=== PATIENT | male | born 1985 | race Caucasian/White ===

== ENCOUNTER 2020-07-17 05:47 | Emergency (ER) | payer BC, SELFPAY ==
[2020-07-17 06:00] VITALS: BP 169/96; PULSE 92; RESP 16; TEMP 36.7; O2SAT 99; BMI 36.2
--- NOTE | 2020-07-17 06:29 | XR_ITS ---
PROCEDURE: XR CHEST 2V CLINICAL HISTORY: Rule out lung disease Nonsmoker for comment painful rash on leg, fever on Friday COMPARISON: US CA VENOUS DOPPLER LE RT from 07/17/2020 FINDINGS: The cardiomediastinal silhouette and pulmonary vascularity are within normal limits. The lungs are clear without infiltrates, suspicious nodules, or pleural effusions. No acute bony abnormalities. IMPRESSION: No acute findings. Dictated by: Sahara Sousa 07/17/2020 08:35 Sahara Sousa in OV 07/17/2020 08:35
[2020-07-17 06:35] LABS: Basophils % 0.6 % (0.1-2.0); Eosinophils # 0.1 K/mm3 (0.0-0.4); Eosinophils % 1.5 % (0.1-12.0); Hematocrit 45.5 % (42.0-52.0); Hemoglobin 15.5 g/dL (14.1-18.0); Lymphocytes # 1.4 K/mm3 (0.7-4.5); Lymphocytes % 18.2 % (10-50); Mean Corpuscular HGB Conc 33.9 g/dL (31.8-35.4); Mean Corpuscular Hemoglobin 31.5 pg (27.0-31.2); Mean Corpuscular Volume 92.7 fl (80-94); Mean Platelet Volume 7.8 fl (7.4-10.4); Monocytes # 0.7 K/mm3 (0.1-1.0); Monocytes % 9.1 % (1.7-9.3); Neutrophils # 5.4 K/mm3 (1.8-7.8); Neutrophils % 70.7 % (37.0-80.0); Platelet Count 203 K/mm3 (142-424); Red Blood Count 4.91 M/mm3 (4.60-6.20); Red Cell Distribution Width 12.7 % (11.5-17.5); White Blood Count 7.7 K/mm3 (4.8-10.8)
[2020-07-17 06:37] VITALS: BP 131/82; PULSE 85; RESP 18; O2SAT 98
--- NOTE | 2020-07-17 06:38 | HMH.EDSKAF ---
ED Disposition Clinical Impression: Erythema nodosum Cellulitis Qualifiers: Site of cellulitis: extremity Site of cellulitis of extremity: lower extremity Laterality: right Qualified Code(s): L03.115 - Cellulitis of right lower limb Disposition: Home, Self-Care Condition on Discharge: Good Instructions: DI for Erythema Nodosum Additional Instructions: fluids and advil/tyenol and see pcp this week Prescriptions: cephALEXin [cephALEXin 500mg capsule*] 500 mg PO TID #21 cap Transmission Status: Pending to [facility] # predniSONE [Prednisone 20mg Tab] 20 mg PO BID #10 tab Transmission Status: Pending to [facility] # Referrals: Kala Espinal [Primary Care Provider] - - Critical Care Critical Care Time: No Attestation: On 07/17/20, the high probability of a clinically significant, sudden or life threatening deterioration of the following system(s) required my full and direct attention, intervention and personal management. The time I documented below is in addition to time spent performing reported procedures but includes the following listed in this critical care notation. Medical Decision Making - Medical Records Medical records reviewed: Yes: I reviewed the patient's medical records. - Alex Inquiry Pt receiving controlled substance: No Vital Signs: 07/17/20 06:00 07/17/20 06:37 Temperature 98.1 F Temperature Source Oral Pulse Rate [Right Brachial] 92 H 85 Respiratory Rate 16 18 Blood Pressure [Right Arm] 169/96 H 131/82 Blood Pressure Mean [Right Arm] 120 98 Blood Pressure Source [Right Arm] Automatic Cuff Automatic Cuff Blood Pressure Position [Right Arm] Sitting Sitting 02 Sat by Pulse Oximetry 99 98 Oxygen Delivery Method Room Air Room Air - Lab Data Lab results reviewed: Yes: I reviewed the patient's lab results. Lab Results 07/17/20 06:10: WBC 7.7, RBC 4.91, Hgb 15.5, Hct 45.5, MCV 92.7, MCH 31.5 H, MCHC 33.9, RDW 12.7, Plt Count 203, MPV 7.8, Neut % (Auto) 70.7, Lymph % (Auto) 18.2, [place] % (Auto) 9.1, Eos % (Auto) 1.5, Baso % (Auto) 0.6, Neut # (Auto) 5.4, Lymph # (Auto) 1.4, [place] # (Auto) 0.7, Eos # (Auto) 0.1, Baso # (Auto) 0.0 07/17/20 06:10: Sodium 141, Potassium 3.9, Chloride 106, Carbon Dioxide 27, Anion Gap 11.9, BUN 15, Creatinine 1.00, Estimated Creat Clear 130, Estimated GFR 86, Est GFR ( Amer) 103, Glucose 141 H, Calcium 9.6, Total Bilirubin 0.7, Direct Bilirubin 0.1, Conjugated Bilirubin 0.0, Indirect Bilirubin 0.6, Unconjugated Bilirubin 0.6, AST 41, ALT 63, Alkaline Phosphatase 71, C-Reactive Protein 98.2 H, Total Protein 8.2, Albumin 4.6 07/17/20 06:10: Lactate 0.9 07/17/20 06:10: ESR 20 H 07/17/20 06:10: Procalcitonin 0.324 07/17/20 06:44: Group A Strep Rapid Negative Result diagrams: 07/17/20 06:10 07/17/20 06:10 Orders (Tests/Meds): ED MEDICATIONS Discontinued Medications Generic Name Dose Route Start Last Admin Trade Name Freq PRN Reason Stop Dose Admin Ketorolac Tromethamine 30 mg 07/17/20 07:38 07/17/20 07:55 Ketorolac 30mg/Ml Vial IV 07/17/20 07:39 30 mg ONCE ONE Administration Methylprednisolone Sodium Succinate 125 mg 07/17/20 07:38 07/17/20 07:55 Methylprednisolone Sod Succ 125mg Vial IV 07/17/20 07:39 125 mg ONCE ONE Administration ORDERS Category Date Time Status Chest XR 2 view (NOT portable) [XR chest 2V] Stat Exams 07/17/20 06:29 Taken Blood Culture Stat Micro 07/17/20 06:10 Received Strep Screen Confirmation Stat Micro 07/17/20 06:44 Received - Radiology Data #1 Image(s): Chest Image Reviewed: Yes I reviewed the patient's radiology image Preliminary Findings: Abnormal (nonspecific ) - US Data US Images: Lower Extremity ED US Reviewed: Yes: I discussed the US results w/the radiologist Preliminary Findings: Normal/NAD Skin/Abscess/FB HPI - General Chief complaint: Skin/Abscess/Foreign Body Stated complaint: Knot on right leg, red and warm to touch
[2020-07-17 06:40] LABS: Chloride 106 mmol/L (98-107); Potassium 3.9 mmoL/L (3.5-5.1); Sodium 141 mmol/L (136-145)
[2020-07-17 06:43] LABS: Alanine Aminotransferase 63 U/L (12-78); Albumin Level 4.6 g/dl (3.5-5.0); Alkaline Phosphatase 71 U/L (38-126); Anion Gap 11.9 mEq/L (5-15); Aspartate Amino Transferase 41 U/L (17-59); Bilirubin,Direct 0.1 mg/dl (0.0-0.4); Bilirubin,Indirect 0.6 mg/dL (0.0-0.9); Bilirubin,Total 0.7 mg/dl (0.2-1.3); Bilirubin,Unconjugated 0.6 mg/dL (0.0-1.1); Blood Urea Nitrogen 15 mg/dl (9-20); Calcium 9.6 mg/dl (8.4-10.2); Carbon Dioxide 27 mmol/L (22.0-30.0); Creatinine Clearance Estimated 130 mL/min (50-200); Estimated Glomerular Filt Rate 86 ml/min (>60); GFR (African American) 103 ML/MIN (>60); Glucose 141 mg/dl (74-100); Lactic Acid 0.9 mmol/L (0.7-2.1); Total Protein,Serum 8.2 g/dl (6.3-8.2)
[2020-07-17 06:48] LABS: C-Reactive Protein 98.2 mg/L (0-4)
[2020-07-17 07:06] LABS: Strep Scrn Group A (Rapid) Negative (Negative)
[2020-07-17 07:21] LABS: Erythrocyte Sedimentation Rate 20 mm/hr (0-15)
[2020-07-17 07:30] LABS: Procalcitonin 0.324 ng/mL (0.0-2.0)
--- NOTE | 2020-07-17 07:30 | CA_ITS ---
APPROVED REPORT Right Lower Extremity Venous Study for DVT. Package Pick Up: Corinne Chiu, RVT Indications Lower Extremity Pain: Right Lower Extremity Edema: Right tender swollen leg,reddness lower calf x 2 days,nki Vein Imaging CFV (R): compressive, spontaneous, phasic, augmentation FEM (R): compressive, spontaneous, phasic, augmentation POP (R): compressive, spontaneous, phasic, augmentation PTV (R): Compressible GSV (R): Compressible Peroneals (R):Compressible GAS (R): Compressible Findings Study suggests no evidence of DVT of the right lower extremity. Study suggests no evidence of SVT of the right lower extremity. 5.7X3.9 cm lymph node with a multinodular cortex which demonstrates blood flow in the cortex is seen in the right lower extremity. Conclusion Study suggests no evidence of DVT of the right lower extremity. Study suggests no evidence of SVT of the right lower extremity. ABNORMAL 5.7X3.9 cm lymph node seen in the right lower extremity. Critical Notification Physician Notified Date: 07/17/2020 Time: 08:00 Physician Name: Dr Kimbrough Electronically signed by : Sahara Sousa, 07/17/2020 08:43:21
--- NOTE | 2020-07-17 07:32 | PC.NURSE ---
Vascular notified of venous doppler order
[2020-07-17 08:13] VITALS: BP 151/91; PULSE 87; RESP 18; TEMP 36.7; O2SAT 97
== END 2020-07-17 08:15 | disposition home or self-care (01) ==
PROVIDERS: Emergency Provider Emergency Medicine; PCP Family Medicine
DX: L03.115 Cellulitis of right lower limb (principal)
CPT/HCPCS: 71046; 80048; 80076; 83605; 84145; 85025; 85651; 86140; 87040; 87430; 93971; 96374; 96375; 99284

== ENCOUNTER 2020-12-06 20:14 | Emergency (ER) | payer BC, SELFPAY ==
[2020-12-06] VITALS (8 sets, daily range): BP systolic 122–149; BP diastolic 72–86; PULSE 62–101; RESP 16–24; TEMP 36.7; O2SAT 95–98; BMI 32.1
--- NOTE | 2020-12-06 20:22 | ECG_ITS ---
APPROVED REPORT Exam: Resting ECG HR:88 bpm ECG Measurements Heart Rate 88 AXES NE 146 P 32 QRSd 86 QRS 62 QT 344 T 23 QTc 416 Conclusion Normal sinus rhythm Cannot rule out Anterior infarct, age undetermined Abnormal ECG Electronically signed by : Juan Pablo Rivers, 12/07/2020 17:42:26
[2020-12-06 21:01] LABS: Basophils # 0.1 K/mm3 (0-0.2); Basophils % 0.7 % (0.1-2.0); Eosinophils # 0.2 K/mm3 (0.0-0.4); Eosinophils % 2.4 % (0.1-12.0); Lymphocytes # 2.3 K/mm3 (0.7-4.5); Lymphocytes % 25.7 % (10-50); Mean Corpuscular HGB Conc 34.1 g/dL (31.8-35.4); Mean Corpuscular Hemoglobin 31.1 pg (27.0-31.2); Mean Corpuscular Volume 91.3 fl (80-94); Mean Platelet Volume 8.2 fl (7.4-10.4); Monocytes # 0.6 K/mm3 (0.1-1.0); Monocytes % 7.3 % (1.7-9.3); Neutrophils # 5.7 K/mm3 (1.8-7.8); Platelet Count 264 K/mm3 (142-424); Red Blood Count 4.82 M/mm3 (4.60-6.20); Red Cell Distribution Width 12.9 % (11.5-17.5); White Blood Count 8.9 K/mm3 (4.8-10.8)
--- NOTE | 2020-12-06 21:02 | HMH.EDGENADL ---
ED Disposition Clinical Impression: Right upper quadrant abdominal pain Disposition: Home, Self-Care Condition on Discharge: Good Instructions: DI for Acute Abdominal Pain Additional Instructions: Follow-up with your primary care doctor to discuss gallbladder ultrasound. Continue taking pantoprazole. Additional instructions for ABDOMINAL PAIN: See your physician as soon as possible for further evaluation. Return immediately if worsening abdominal pain, vomiting, shortness of breath, fever, vomiting of blood or abdominal distention. Referrals: Kala Esipnal [Primary Care Provider] - - Critical Care Critical Care Time: No Attestation: On 12/06/20, the high probability of a clinically significant, sudden or life threatening deterioration of the following system(s) required my full and direct attention, intervention and personal management. The time I documented below is in addition to time spent performing reported procedures but includes the following listed in this critical care notation. Medical Decision Making - Alex Inquiry Pt receiving controlled substance: No Vital Signs: 12/06/20 20:20 12/06/20 20:30 12/06/20 21:00 Temperature 98.1 F Temperature Source Oral Pulse Rate 91 H 81 Pulse Rate [Left Radial] 101 H Respiratory Rate 16 20 20 Blood Pressure 143/86 H 129/83 Blood Pressure [Right Arm] 122/73 Blood Pressure Mean [Right Arm] 89 Blood Pressure Source [Right Arm] Automatic Cuff Blood Pressure Position [Right Arm] Sitting 02 Sat by Pulse Oximetry 97 95 95 Oxygen Delivery Method Room Air 12/06/20 21:42 12/06/20 22:00 12/06/20 22:30 Temperature Temperature Source Pulse Rate 79 82 76 Pulse Rate [Left Radial] Respiratory Rate 20 22 19 Blood Pressure 139/74 149/78 H 136/72 Blood Pressure [Right Arm] Blood Pressure Mean [Right Arm] Blood Pressure Source [Right Arm] Blood Pressure Position [Right Arm] 02 Sat by Pulse Oximetry 98 96 95 Oxygen Delivery Method Room Air Room Air - Lab Data Lab Results 12/06/20 20:35: WBC 8.9, RBC 4.82, Hgb 15.0, Hct 44.0, MCV 91.3, MCH 31.1, MCHC 34.1, RDW 12.9, Plt Count 264, MPV 8.2, Neut % (Auto) 64.0, Lymph % (Auto) 25.7, [place] % (Auto) 7.3, Eos % (Auto) 2.4, Baso % (Auto) 0.7, Neut # (Auto) 5.7, Lymph # (Auto) 2.3, [place] # (Auto) 0.6, Eos # (Auto) 0.2, Baso # (Auto) 0.1 12/06/20 20:35: Sodium 141, Potassium 4.0, Chloride 104, Carbon Dioxide 26, Anion Gap 15.0, BUN 22 H, Creatinine 1.00, Estimated Creat Clear 129, Estimated GFR 86, Est GFR ( Amer) 103, Glucose 133 H, Calcium 8.9, Total Bilirubin 0.5, AST 39, ALT 46, Alkaline Phosphatase 86, Total Protein 7.6, Albumin 4.6, Globulin 3.0, Albumin/Globulin Ratio 1.5, Amylase 67, Lipase 102 12/06/20 22:46: Troponin I < 0.01 Result diagrams: 12/06/20 20:35 12/06/20 20:35 Orders (Tests/Meds): ED MEDICATIONS Discontinued Medications Generic Name Dose Route Start Last Admin Trade Name Tomi PRN Reason Stop Dose Admin Iopamidol 75 ml 12/06/20 21:33 12/06/20 21:34 Iopamidol-370 (76%);100ml Bottle IV 12/06/20 21:34 75 ml ONCE ONE Administration Ketorolac Tromethamine 30 mg 12/06/20 21:11 12/06/20 21:13 Ketorolac 30mg/Ml Vial IV 12/06/20 21:12 30 mg ONCE ONE Administration Sodium Chloride 10 ml 12/06/20 21:33 12/06/20 21:34 Sodium Chloride 0.9% 10ml Syr (Rad Only) IV 12/06/20 21:34 10 ml ONCE ONE Administration - CT Data CT Scan: Abdomen, Pelvis Time Received: 22:[address] Reviewed: Yes: I have viewed the radiologist's interpretation Findings Narrative: PROCEDURE INFORMATION: Exam: CT Abdomen And Pelvis With Contrast Exam date and time: 12/06/2020 9:11 PM Age: 34 years old Clinical indication: Abdominal pain; Generalized; Additional info: Abdo pain TECHNIQUE: Imaging protocol: Computed tomography of the abdomen and pelvis with contrast. Radiation optimization: All CT scans at this facility use at least
[2020-12-06 21:06] LABS: Alanine Aminotransferase 46 U/L (12-78); Albumin Level 4.6 g/dl (3.5-5.0); Albumin/Globulin Ratio 1.5 (1.1-1.8); Alkaline Phosphatase 86 U/L (38-126); Amylase 67 U/L (30-110); Aspartate Amino Transferase 39 U/L (17-59); Bilirubin,Total 0.5 mg/dl (0.2-1.3); Blood Urea Nitrogen 22 mg/dl (9-20); Calcium 8.9 mg/dl (8.4-10.2); Carbon Dioxide 26 mmol/L (22.0-30.0); Chloride 104 mmol/L (98-107); Creatinine Clearance Estimated 129 mL/min (50-200); Estimated Glomerular Filt Rate 86 ml/min (>60); GFR (African American) 103 ML/MIN (>60); Glucose 133 mg/dl (74-100); Lipase 102 U/L (23-300); Sodium 141 mmol/L (136-145); Total Protein,Serum 7.6 g/dl (6.3-8.2)
--- NOTE | 2020-12-06 21:11 | CT_ITS ---
PROCEDURE INFORMATION: Exam: CT Abdomen And Pelvis With Contrast Exam date and time: 12/06/2020 9:11 PM Age: 34 years old Clinical indication: Abdominal pain; Generalized; Additional info: Abdo pain TECHNIQUE: Imaging protocol: Computed tomography of the abdomen and pelvis with contrast. Radiation optimization: All CT scans at this facility use at least one of these dose optimization techniques: automated exposure control; mA and/or kV adjustment per patient size (includes targeted exams where dose is matched to clinical indication); or iterative reconstruction. Contrast material: ISOVUE; Contrast volume: 75 ml; Contrast route: IV; COMPARISON: CA VENOUS DOPPLER LE RT 07/17/2020 7:38 AM FINDINGS: Liver: Normal. Gallbladder and bile ducts: Normal. Pancreas: Normal. Spleen: Normal. Adrenal glands: Normal. No mass. Kidneys and ureters: Normal. Stomach and bowel: Normal. Appendix: No evidence of appendicitis. Intraperitoneal space: Unremarkable. No free air. No significant fluid collection. Vasculature: Unremarkable. No abdominal aortic aneurysm. Lymph nodes: Unremarkable. No enlarged lymph nodes. Urinary bladder: Unremarkable as visualized. Reproductive: Unremarkable as visualized. Bones/joints: No acute abnormality. Soft tissues: Normal. IMPRESSION: No acute findings.
--- NOTE | 2020-12-06 21:21 | PC.NURSE ---
pt gone to radiology at this time
--- NOTE | 2020-12-06 21:41 | PC.NURSE ---
pt back in room from radiology.
[2020-12-06 22:55] LABS: Troponin I < 0.01 ng/ml (0.00-0.034)
== END 2020-12-06 23:15 | disposition home or self-care (01) ==
PROVIDERS: Emergency Provider Emergency Medicine; PCP Family Medicine
DX: R10.11 Right upper quadrant pain (principal); R10.31 Right lower quadrant pain; R10.13 Epigastric pain
CPT/HCPCS: 74177; 80053; 82150; 83690; 84484; 85025; 93005; 96374; 96375; 99283; Q9967

== ENCOUNTER 2020-12-21 19:14 | Emergency (ER) | payer BC, SELFPAY ==
[2020-12-21 19:25] VITALS: BP 102/74; PULSE 71; RESP 16; TEMP 36.6; O2SAT 99; BMI 32.1
[2020-12-21 19:37] VITALS: PULSE 75; RESP 18; O2SAT 100; BMI 32.1
--- NOTE | 2020-12-21 19:40 | XR_ITS ---
PROCEDURE INFORMATION: Exam: XR Right Ankle Exam date and time: 12/21/2020 7:40 PM Age: 35 years old Clinical indication: Injury or trauma; Swelling (edema); Ankle; Right; Injury date: Today; Injury details: Fall off ladder, pain on lateral side TECHNIQUE: Imaging protocol: XR Right ankle. Views: 3 or more views. COMPARISON: CA VENOUS DOPPLER LE RT 07/17/2020 7:38 AM FINDINGS: Bones/joints: No acute displaced fracture. No dislocation. Ankle mortise is symmetric. Dorsal calcaneal enthesophyte. Soft tissues: Normal. IMPRESSION: No acute finding.
--- NOTE | 2020-12-21 20:16 | HMH.EDUTC ---
[facility] [place] Disposition Clinical Impression: Right ankle sprain Qualifiers: Encounter type: initial encounter Involved ligament of ankle: unspecified ligament Qualified Code(s): S93.401A - Sprain of unspecified ligament of right ankle, initial encounter Disposition: Home, Self-Care Condition on Discharge: Good Instructions: How to Use Crutches, Ankle Sprain, DI for Ankle Sprain Additional Instructions: Rest the extremity, apply ice for 15 minutes as tolerated three or four times per day, Elevate the extremity as tolerated while you are resting. Take ibuprofen for pain. I sent in a prescription to your pharmacy. Follow up with Dr. Kelly (podiatry). Sometimes there can be fractures that don't show up well on the first set of x-rays. So, you should follow up if you continue to have symptoms. I put in a referral but you need to call her office and schedule an appointment. Follow up with your regular doctor. GO TO THE ER FOR ANY WORSENING SYMPTOMS Prescriptions: Ibuprofen [Ibuprofen 800mg Tablet] 800 mg PO Q8HP PRN #30 tab PRN Reason: Moderate Pain Transmission Status: Received by [id number] Referrals: Kala Espinal [Primary Care Provider] - Tania Kelly DPM [Staff Physician] - Time of Disposition: 20:20 Medical Decision Making - Medical Records Medical records reviewed: No: I reviewed the patient's medical records. - Alex Inquiry Pt receiving controlled substance: No Vital Signs: 12/21/20 19:25 12/21/20 19:37 12/21/20 20:19 Temperature 97.8 F 98.5 F Temperature Source Oral Pulse Rate 79 Pulse Rate [Right] 71 75 Respiratory Rate 16 18 16 Blood Pressure 122/74 Blood Pressure [Right Arm] 102/74 L Blood Pressure Mean [Right Arm] 83 02 Sat by Pulse Oximetry [address] [facility] [place] HPI - General Stated complaint: AO 12/21 @1630 Fell 3 ft injured R Ankle Time Seen by Provider: 12/21/20 19:35 Mode of Arrival: Wheelchair Source of Information: Patient Limitations: No Limitations Description of Symptoms (Recalled from Triage Doc. by RN): pt fell about three ft off a ladder and injured his R ankle. he is unable to put wt on it and is having pain 10/10 HEENT Symptoms (Recalled from RN notes): No Resp Symptoms (Recalled from RN notes): No Skin Symptoms (Recalled from RN notes): No MS Symptoms (Recalled from RN notes): Yes (R ankle pain) Functional Status (Recalled from RN notes): na - History of Present Illness Provider Complaint: He states that he stepped down and twisted his right ankle at about 1530 today. Since then he has had right foot and ankle pain. He states that bearing weight on it and trying to walk makes it way worse. - Related Data Home Medications Medication Instructions Recorded Confirmed Pantoprazole Sodium [Protonix 20mg 20 mg PO DAILY 12/06/20 12/06/20 Tab] Previous Rx's Medication Instructions Recorded Ibuprofen [Ibuprofen 800mg 800 mg PO Q8HP PRN #30 tab 12/21/20 Tablet] Allergies Allergy/AdvReac Type Severity Reaction Status Date / Time No Known Allergies Allergy Verified 07/17/20 06:04 - Worker's Comp Is this a Worker's Comp case?: No [facility] History - Hepatitis A Screen Drug use history?: No High risk sexual behaviors?: No History of sexually transmitted infection?: No Currently employed?: No Childcare worker?: No Do you have indoor plumbing?: Yes Do you have electricity?: Yes Attestation statement:: This patient has been screened for Hepatitis A risk factors. I have reviewed the patient's past medical history: Yes ROS Obtained: Yes All systems reviewed & no additional complaints - Constitutional Constitutional: Denies chills, Denies fever(s) - Musculoskeletal Musculoskeletal: Reports as per HPI - Integumentary/Breasts Skin/Breast: Denies redness, Denies rash, Denies wounds - Neurologic Neurologic: Denies tingling/numbness/burning sensations Physical Exam - General General appearance: alert, in no appa
[2020-12-21 20:19] VITALS: BP 122/74; PULSE 79; RESP 16; TEMP 36.9
== END 2020-12-21 20:25 | disposition home or self-care (01) ==
PROVIDERS: Emergency Provider Nurse Practitioner Family; PCP Family Medicine
DX: S93.401A Sprain of unspecified ligament of right ankle, initial encounter (principal); W11.XXXA Fall on and from ladder, initial encounter; Y92.9 Unspecified place or not applicable
CPT/HCPCS: 29515; 73610; 99202; G0463

== ENCOUNTER 2022-09-30 11:51 | Emergency (ER) | payer BC, SELFPAY ==
--- NOTE | 2022-09-30 12:33 | EXP.UTC ---
Discharge Plan Disposition Patient Disposition: Home, Self-Care Condition: Good Prescriptions Prescriptions: New amoxicillin [amoxicillin] 875 mg tablet 875 mg PO Q12H Qty: 20 0RF methylprednisolone 4 mg Tablets,Dose Pack 4 mg PO DIRECTED Qty: 21 0RF No Action ibuprofen 800 MG tablet 800 mg PO Q8HP PRN (Reason: Moderate Pain) Qty: 30 0RF pantoprazole 20 MG tablet,delayed release (DR/EC) 20 mg PO DAILY Referrals Follow up/Referrals: Anastacio Urbano [Primary Care Provider] - See instructions Activity Restrictions/Add. Instructions Additional Instructions/Restrictions: Drink plenty of fluids. Take tylenol or ibuprofen for pain or fever. Take the medications as directed. Follow up with your regular doctor. GO TO THE ER FOR ANY WORSENING SYMPTOMS Throw your tooth brush away and get a new one. Clinical Impressions Clinical Impression: Strep throat Instructions Patient Instructions: Strep Throat, DI for Strep Throat Discharge ED Provider: Chris Pineda [facility] General Stated complaint: sore throat Time Seen by Provider: 09/30/22 12:33 History of Present Illness Provider Complaint: He states that for the past 4 days he has had sore throat and fever. Related Data Home Medications Medication Instructions Recorded Confirmed pantoprazole 20 mg tablet,delayed 20 mg PO DAILY GERD 12/06/20 12/06/20 release Previous Rx's Medication Instructions Recorded ibuprofen 800 mg tablet 800 mg PO Q8HP PRN Moderate Pain 12/21/20 #30 tabs amoxicillin 875 mg tablet 875 mg PO Q12H #20 tabs 09/30/22 methylprednisolone 4 mg tablets in 4 mg PO DIRECTED #21 tabs 09/30/22 a dose pack Allergies Allergy/AdvReac Type Severity Reaction Status Date / Time No Known Allergies Allergy Verified 07/17/20 06:04 [facility] Disclaimer: The information contained in this section may have been updated after the patient was seen, as this information can be updated by other users. Social History Smoking Status: Never smoker alcohol intake: never current occupational status: employed Travel in the last 8 weeks: None ROS Obtained: Yes All systems reviewed & no additional complaints except as documented Constitutional Constitutional: Reports chills and Reports fever(s) Eyes Eyes: Denies eye discharge ENT Ears, Nose, Mouth, and Throat: Reports as per HPI Cardiovascular Cardiovascular: Denies chest pain Respiratory Respiratory: Denies chest congestion and Reports cough Gastrointestinal Gastrointestingal: Reports nausea; Denies abdominal pain, constipation, cramping, diarrhea or vomiting Musculoskeletal Musculoskeletal: Denies arthralgias Integumentary/Breasts Skin/Breast: Denies rash Neurologic Neurologic: Denies paresthesias Physical Exam General General appearance: alert and in no apparent distress Head Head exam: atraumatic, normocephalic and normal inspection Eye Eye exam: Present normal appearance, PERRL and EOMI ENT ENT exam: Present mucous membranes moist and normal external ear exam Expanded ENT Exam TM/Canal exam: Bilateral TM: erythema and bulging Nose exam: Absent sinus tenderness Mouth exam: Present normal external inspection; Absent drooling Teeth exam: Present normal inspection Throat exam: Present tonsillar erythema, tonsillomegaly and tonsillar exudate Neck Neck exam: Present normal inspection, full ROM and trachea midline; Absent tenderness, meningismus or lymphadenopathy Chest Chest inspection: Present normal inspection and symmetric chest wall rise; Absent tenderness Respiratory Respiratory exam: Present normal lung sounds bilaterally; Absent respiratory distress, wheezes or stridor Cardiovascular Cardiovascular exam: Present regular rate and normal rhythm; Absent systolic murmur or diastolic murmur Abdominal Exam Abdominal exam: Present soft and normal bowel sounds; Absent distention, t
[2022-09-30 12:37] LABS: UTC Strep Screen (Rapid) Positive (Negative)
[2022-09-30 12:41] VITALS: BP 124/89; PULSE 68; RESP 18; TEMP 37.2; O2SAT 99; BMI 32.9
[2022-09-30 12:59] VITALS: BP 124/89; PULSE 68; RESP 16; TEMP 37.2; O2SAT 99
--- NOTE | 2022-09-30 19:14 | PC.NURSE ---
Patients spouse called and requested rx's be sent to [facility] in [place].
== END 2022-09-30 13:00 | disposition home or self-care (01) ==
PROVIDERS: Emergency Provider Nurse Practitioner Family; PCP Pediatrics
DX: J02.0 Streptococcal pharyngitis (principal)
CPT/HCPCS: 87880; 99212; 99214; G0463